=== PATIENT | female | born 1975 | race Caucasian/White ===

== ENCOUNTER → 2018-05-19 | Outpatient (CLI) | payer BC ==
--- NOTE | 2018-05-19 13:14 | KCIC ---
EXAM: PA, oblique and lateral views of the left wrist DATE: 05/19/2018 12:00 AM INDICATION: Left wrist pain COMPARISON: 10/24/2012 FINDINGS: No evidence of acute fracture or dislocation. Joint spaces are preserved without significant degenerative/proliferative change. No significant soft tissue swelling. IMPRESSION: 1. No evidence of acute fracture or dislocation. Electronically signed by: Jesus Leos MD (05/19/2018 1:11 PM) [facility]
== END | disposition home or self-care (01) ==
LOC: KCIC 11:49
PROVIDERS: ATTEND Nurse Practitioner Family
DX: M25.532 Pain in left wrist (principal)
CPT/HCPCS: 73110